=== PATIENT | female | born 1990 | race American Indian/Alaskan Native ===

== ENCOUNTER 2017-08-15 06:25 | Day surgery (SDC) | payer OTHER, MEDICAID ==
[~2017-08-15 06:25] MED LIST: ANCEF/STERILE WATER 2 GM/20 ML 2 GM/20 ML SYRINGE IV NR
--- NOTE | 2017-08-15 08:37 | Anesthesia Consultation ---
Anesthesia Consult and Med Hx Date of service: 08/15/17 - Airway Anesthetic Teeth Evaluation: Good ROM Head & Neck: Adequate Mental/Hyoid Distance: Adequate Mallampati Class: Class I Intubation Access Assessment: Good - Pulmonary Exam CTA: Yes - Cardiac Exam Cardiac Exam: No Murmur - Pre-Operative Health Status ASA Pre-Surgery Classification: ASA1, ASA2 Proposed Anesthetic Plan: General, MAC - Pulmonary Hx Smoking: No Hx Asthma: No Hx Respiratory Symptoms: No (Recent URI with usual symptoms) COPD: No Hx Pneumonia: No Hx Sleep Apnea: No (NOLBERTO PRE SCREEN NEGATIVE) - Cardiovascular System Hx Hypertension: No - Central Nervous System Hx Back Pain: Yes Hx Psychiatric Problems: No - Endocrine Hx End Stage Renal Disease: No - Hematic Hx Anemia: No Hx Sickle Cell Disease: No - Other Systems Hx Alcohol Use: Yes (OCCASSIONAL DRINKARD) Hx Substance Use: Yes (ACCIDENTAL OD ON PAIN MEDS FOR HEADACHE 2016) Hx Cancer: No - Additional Comments Anesthesia Medical History Comments: May do MAC IS OK WITH SURGEON
[2017-08-15] MEDS ORDERED: LACTATED RINGERS 1,000 ML IV SCH (09:00)
[2017-08-15] MEDS ORDERED: ANCEF/STERILE WATER 2 GM/20 ML IV NR (09:00)
[2017-08-15] MEDS ORDERED: VERSED IV NR (09:00)
[2017-08-15] MEDS ORDERED: PEPCID IV NR (09:00)
[2017-08-15] MEDS ORDERED: DIPRIVAN 10 MG/ML IV ONE (10:15)
[2017-08-15] MEDS ORDERED: SUBLIMAZE ONE (10:15)
[2017-08-15] MEDS ORDERED: XYLOCAINE MPF 2% ONE (10:17)
[2017-08-15] MEDS ORDERED: DECADRON ONE (10:38)
[2017-08-15] MEDS ORDERED: ZOFRAN ONE (10:38)
[2017-08-15] MEDS ORDERED: WATER FOR IRRIG STERILE IR ONE (10:45)
[2017-08-15] MEDS ORDERED: ePHEDrine 50 MG/5 ML-0.9% NACL IV ONE (10:55)
--- NOTE | 2017-08-15 11:17 | Post Operative Note ---
Date of procedure: 08/15/17 Pre-op diagnosis: irritative voiding Post-op diagnosis: same Findings: ? stone Procedure: cysto rpgs ureteroscopy j stent Anesthesia: GETA Surgeon: EUDAR COPE Estimated blood loss: none Pathology: none Condition: stable Disposition: PACU
--- NOTE | 2017-08-15 11:18 | Discharge Summary ---
Short Stay Discharge Plan Activity: other (no straining ) Weight Bearing Status: Full Weight Bearing Diet: regular Special Instructions: other (inc fluids ) Durable Medical Equipment Needed Upon Discharge: other (j stent // do not pull string ) Follow up with: KRISTIE BLANKENSHIP, FLIGHT TEST DATA ACQUISITION TECHNICIAN-C [Primary Care Provider] - 7 Days EDUAR COPE MD [Staff Physician] - 7 Days
[2017-08-15] MEDS: DILAUDID IV PRN ×3 (11:30→12:07)
[2017-08-15] MEDS ORDERED: DILAUDID ONE (11:30)
--- NOTE | 2017-08-15 11:37 | Operative Report ---
PREOPERATIVE DIAGNOSIS: Irritative voiding symptoms. POSTOPERATIVE DIAGNOSES: Dilated right distal ureter, possible distal stone. PROCEDURE: Cystoscopy, bilateral retrogrades, right ureteroscopy, balloon dilatation and a double-J stent. SURGEON: Chadd Crystal MD ANESTHESIA: General. FINDINGS: There are no persistent irritative voiding symptoms. She had no pain. No gross hematuria. She now presents for cystoscopy. DESCRIPTION OF PROCEDURE: The patient brought to the operating room and placed on the operating table. Following induction of anesthesia, placed in lithotomy position, prepped and draped in sterile fashion. Cystourethroscopy showed normal bladder epithelium. No biopsies were required. Retrograde on the right showed a very dilated distal ureter with a persistent filling defect. This was not seen on the scalp, but she did have a good amount of stool. At this point, we kept waiting and the ureter was quite dilated and actually the defect was still there. We placed a wire. The left side was normal and drained freely. A wire was coiled up in the kidney and 4 cm balloon was used and an ureteroscopy was carried out. No distinct stone was seen. There was apparently some gravel, but no obvious stone. A 5-[place] double J coiled in the kidney and bladder. The patient tolerated the procedure well and brought to recovery in stable condition. We left a string. JOB# [id number] GUSTAVO/NABIL
--- NOTE | 2017-08-15 19:36 | Anesthesia Day of Surgery ---
Anesthesia Day of Surgery - Day of Surgery Patient Examined: Yes Patient H&P Reviewed: Yes Patient is NPO: Yes
--- NOTE | 2017-08-15 19:37 | Post Anesthesia Evaluation ---
- Post Anesthesia Evaluation Patient Participated: Yes Airway Patent: Yes Stable Respiratory Function: Yes Nausea/Vomiting: No Temp > 96.8F: Yes Pain Manageable: Yes Adequeate Hydration: Yes Anesthesia Complications: No
[2017-08-15 20:18] VITALS: BP 118/73
--- NOTE | 2017-08-16 07:30 | Fluoroscopy Report ---
FLUOROSCOPY RETROGRADE UROGRAPHY: FLUOROSCOPY URETER/NEPHROSTOMY DILATATION RIGHT: HISTORY: Urinary frequency. FINDINGS: Fluoroscopy was provided by radiology during retrograde urography by the urologist. 13 fluoroscopic images were captured. There is adequate filling of the ureters and intrarenal collecting systems with no filling defects or anatomic abnormalities identified. Right ureteroscopy was performed per the operative note. Dilatation of the distal right ureter and placement of a right ureteral stent was also performed. Please correlate with the procedural report as needed. IMPRESSION: No filling defect visualized in the renal collecting systems. Right ureteral stent placement.
== END 2017-08-15 13:29 | disposition home or self-care (01) ==
LOC: OR 06:25
PROVIDERS: ATTEND Urology
DX: R35.0 Frequency of micturition (principal); N39.0 Urinary tract infection, site not specified; I50.9 Heart failure, unspecified
CPT/HCPCS: 52260; 74420; 74485; 81025; A4217; C1726; C1758; C1769; C2617; J0690; J1100; J1170; J2250; J2405; J2704; J3010; J7120; Q9967

== ENCOUNTER 2019-08-23 00:09 | Emergency (ER) | payer MEDICAID, OTHER ==
--- NOTE | 2019-08-23 02:21 | Emergency Department Report ---
ED General Adult HPI - General Chief complaint: Overdose Stated complaint: DRUG OVERDOSE Time Seen by Provider: 08/23/19 00:43 Source: patient, EMS Mode of arrival: Stretcher Limitations: No Limitations - History of Present Illness Initial comments: Patient presents to the emergency department via EMS for drug overdose. Per EMS they were called to the scene for patient and was unresponsive. Upon arrival the patient was having shallow breaths and pinpoint pupils and was not responsive. Patient was given 2 mg of Narcan and immediately woke up. The patient to the EMT and fisher troll line that she is overdosed on Percocet before. He was also overheard by the patient was on the phone that she endorsed taking some type of opioid. -: Sudden Severity scale (0 -10): 0 Consistency: now resolved Improves with: none Worsens with: none Associated Symptoms: denies other symptoms Treatments Prior to Arrival: none - Related Data Previous Rx's Medication Instructions Recorded Last Taken Type Naloxone HCl 2 mg IJ ONCE PRN #1 auto.injct 08/23/19 Unknown Rx Allergies Allergy/AdvReac Type Severity Reaction Status Date / Time No Known Allergies Allergy Verified 09/23/15 05:55 ED Review of Systems ROS: Stated complaint: DRUG OVERDOSE Other details as noted in HPI Comment: All other systems reviewed and negative Constitutional: denies: chills, fever Eyes: denies: eye pain, eye discharge, vision change ENT: denies: ear pain, throat pain Respiratory: denies: cough, shortness of breath, wheezing Cardiovascular: denies: chest pain, palpitations Endocrine: no symptoms reported Gastrointestinal: denies: abdominal pain, nausea, diarrhea Genitourinary: denies: urgency, dysuria, discharge Musculoskeletal: denies: back pain, joint swelling, arthralgia Skin: denies: rash, lesions Neurological: denies: headache, weakness, paresthesias Psychiatric: denies: anxiety, depression Hematological/Lymphatic: denies: easy bleeding, easy bruising ED Past Medical Hx - Past Medical History Hx Hypertension: No Hx Congestive Heart Failure: No Hx Diabetes: No Hx Sickle Cell Disease: No Hx Asthma: No Hx COPD: No Hx HIV: No - Social History Smoking Status: Never Smoker Substance Use Type: Alcohol, Other - Medications Home Medications: Home Medications Medication Instructions Recorded Confirmed Last Taken Type Naloxone HCl 2 mg IJ ONCE PRN #1 auto.injct 08/23/19 Unknown Rx ED Physical Exam - General Limitations: No Limitations General appearance: alert, in no apparent distress - Head Head exam: Present: atraumatic, normocephalic - Eye Eye exam: Present: normal appearance, PERRL, EOMI - ENT ENT exam: Present: mucous membranes moist - Neck Neck exam: Present: normal inspection - Respiratory Respiratory exam: Present: normal lung sounds bilaterally. Absent: respiratory distress - Cardiovascular Cardiovascular Exam: Present: regular rate, normal rhythm. Absent: systolic murmur, diastolic murmur, rubs, gallop - GI/Abdominal GI/Abdominal exam: Present: soft, normal bowel sounds. Absent: distended, tenderness - Extremities Exam Extremities exam: Present: normal inspection - Back Exam Back exam: Present: normal inspection - Neurological Exam Neurological exam: Present: alert, oriented X3, CN II-XII intact. Absent: motor sensory deficit - Psychiatric Psychiatric exam: Present: normal affect, normal mood - Skin Skin exam: Present: warm, dry, intact, normal color. Absent: rash ED Course Vital Signs 08/23/19 08/23/19 00:42 00:43 Temperature 98.4 F 98.4 F Pulse Rate 111 H 111 H Respiratory 20 20 Rate Blood Pressure 113/81 Blood Pressure 113/81 [Left] O2 Sat by Pulse 100 100 Oximetry ED Medical Decision Making - Lab Data Lab Results 08/23/19 08/23/19 Range/Units 01:54 01:54 Urine Color Straw (Yellow) Urine Turbidity Slightly-cloudy (Clear) Urine pH 6.0 (5.0-7.0) Ur Specific [place] 1.006 (1.003-1.030) Urine Protein <15 mg/dl (Negative) mg/dL Urine Glucose (UA) Neg (Negative) mg/dL Urine Ketones Neg (Negative) mg/dL Urine Blood Neg (Negative) Urine Nitrite Neg (Negative) Urine Bilirubin Neg (Negative) Urine Urobilinogen < 2.0 (<2.0) mg/dL Ur Leukocyte Esterase Neg (Negative) Urine WBC (Auto) 2.0 (0.0-6.0) /HPF Urine RBC (Auto) 2.0 (0.0-6.0) /HPF U Epithel Cells (Auto) 6.0 (0-13.0) /HPF Urine Bacteria (Auto) 1+ (Negative) /HPF Hyaline Casts 5 /LPF Urine HCG, Qual Negative (Negative) Urine Opiates Screen Presumptive negative Urine Methadone Screen Presumptive negative Ur Barbiturates Screen Presumptive negative Ur Phencyclidine Scrn Presumptive negative Ur Amphetamines Screen Presumptive negative U Benzodiazepines Scrn Presumptive negative Urine Cocaine Screen Presumptive negative U Marijuana (THC) Screen Presumptive negative - Medical Decision Making Patient was given 2 mg Narcan 45 minutes prior to arrival to the ED. Patient was observed for another 2 hours and 45 minutes in the emergency department. Altogether patient was observed either by EMS or the ED staff total of approximately 3-1/2 hours. At 2:55 AM the patient is completely awake and talking on the phone. Critical care attestation.: If time is entered above; I have spent that time in minutes in the direct care of this critically ill patient, excluding procedure time. ED Disposition Clinical Impression: Opioid overdose Disposition: DC-01 TO HOME OR SELFCARE Is pt being admited?: No Does the pt Need Aspirin: No Condition: Stable Instructions: Narcotic Abuse (ED) Additional Instructions: return if worse Prescriptions: Naloxone HCl 2 mg IJ ONCE PRN #1 auto.injct PRN Reason: Overdose Referrals: PRIMARY CARE, [Primary Care Provider] - 3-5 Days [facility] [Provider Group] - 3-5 Days [facility] [Provider Group] - 3-5 Days TERRA ROBINS DO [Staff Physician] - 3-5 Days Time of Disposition: 02:56
[2019-08-23 02:26] LABS: Bacteria,Urine 1+ /HPF (Negative); Bilirubin,Urine NEG (Negative); Blood,Urine NEG (Negative); Color,Urine Straw (Yellow); Hyaline Casts,Urine 5 /LPF; Protein,Urine <15 mg/dL mg/dL (Negative); Urobilinogen,Urine < 2.0 mg/dL (<2.0)
[2019-08-23 02:27] LABS: HCG Qualitative,Urine Negative (Negative)
[2019-08-23 02:28] LABS: Amphetamine Screen,Urine PRESUMPTIVE NEGATIVE; Benzodiazepines Screen,Urine PRESUMPTIVE NEGATIVE; Cannabinoid Screen,Urine PRESUMPTIVE NEGATIVE; Cocaine Screen,Urine PRESUMPTIVE NEGATIVE; Methadone Screen,Urine PRESUMPTIVE NEGATIVE; Opiate Screen,Urine PRESUMPTIVE NEGATIVE
[2019-08-23 06:04] VITALS: BP 118/72
== END 2019-08-23 03:13 | disposition home or self-care (01) ==
LOC: ED 00:09
DX: T40.2X1A Poisoning by other opioids, accidental (unintentional), initial encounter (principal); Y92.89 Other specified places as the place of occurrence of the external cause
CPT/HCPCS: 80307; 81001; 81025